=== PATIENT | female | born 1965 | race Caucasian/White ===

== ENCOUNTER 2017-11-12 08:59 | Emergency (ER) | payer MEDICAID, OTHER ==
[~2017-11-12] VITALS: Ht 157.5 cm; Wt 66.0 kg
[2017-11-12] MEDS ORDERED: LOSA25TA12 PO (09:04)
[2017-11-12] MEDS ORDERED: IBUPROFEN 600MG TABLET PO STA (09:22)
[2017-11-12] MEDS ORDERED: MECLIZINE 25MG TABLET PO ONE (09:30)
[2017-11-12 09:45] LABS: BASOPHILS % 0.3 % (0.0-2.0); EOSINOPHILS % 3.6 % (0.0-5.0); HEMATOCRIT. 43.2 % (36.0-48.0); HEMOGLOBIN. 14.5 g/dL (12.0-16.0); LYMPHOCYTES % 22.2 % (20.0-50.0); MEAN CORPUSCULAR HEMOGLOBIN 30.3 pg (28.0-32.0); MEAN CORPUSCULAR VOLUME 90.2 fL (81.0-99.0); MEAN PLATELET VOLUME 8.8 fl (7.4-10.4); MONOCYTES % 5.3 % (2.0-8.0); NEUTROPHILS % 68.6 % (40.0-76.0); PLATELET 250 x1000/uL (130-400); RED BLOOD CELL COUNT 4.78 mill/uL (4.2-5.4); RED CELL DISTRIBUTION WIDTH 12.9 % (11.6-14.6)
[2017-11-12 09:47] LABS: CHLORIDE 107 mEq/L (98-107)
[2017-11-12 09:49] LABS: PROTHROMBIN TIME 10.7 sec (9.4-11.6)
[2017-11-12] MEDS ORDERED: LOSARTAN POTASSIUM 100 MG TABLET PO ONE (10:00)
[2017-11-12 11:33] LABS: CLARITY URINE CLEAR (CLEAR); COLOR URINE YELLOW (YELLOW); KETONES URINE NEGATIVE (NEGATIVE); LEUKOCYTE ESTERASE URINE TRACE (NEGATIVE); NITRITE URINE NEGATIVE (NEGATIVE); OCCULT BLOOD URINE NEGATIVE (NEGATIVE); PH URINE 7.5 (4.5-8.0); PROTEIN URINE NEGATIVE (NEGATIVE); UROBILINOGEN URINE 0.2 E.U./dL (0.2-1.0)
[2017-11-12 12:50] VITALS: BP 166/95
== END 2017-11-12 13:09 | disposition home or self-care (01) ==
LOC: ER 09:26
DX: R51 Headache (principal); I10 Essential (primary) hypertension; E78.00 Pure hypercholesterolemia, unspecified; Z85.51 Personal history of malignant neoplasm of bladder; Z90.710 Acquired absence of both cervix and uterus
CPT/HCPCS: 36415; 80053; 81003; 81025; 85025; 85610; 93005; 99285; Z7610; J8597

== ENCOUNTER 2018-08-30 18:07 | Emergency (ER) | payer OTHER ==
[~2018-08-30] VITALS: Ht 160 cm; Wt 67.0 kg
[~2018-08-30 18:07] MED LIST: LOSA25TA12 PO
[2018-08-30 18:14] VITALS: BP 166/97
== END 2018-08-30 19:48 | disposition home or self-care (01) ==
LOC: ER 18:07
DX: H66.91 Otitis media, unspecified, right ear (principal); E78.00 Pure hypercholesterolemia, unspecified; I10 Essential (primary) hypertension; Z90.710 Acquired absence of both cervix and uterus; Z79.899 Other long term (current) drug therapy
CPT/HCPCS: 99283

== ENCOUNTER 2018-09-08 09:50 | Emergency (ER) | payer OTHER ==
[~2018-09-08] VITALS: Ht 165.1 cm; Wt 67.0 kg
[2018-09-08 09:56] VITALS: BP 165/99
== END 2018-09-08 12:16 | disposition home or self-care (01) ==
LOC: ER 11:35
DX: H66.91 Otitis media, unspecified, right ear (principal); E78.00 Pure hypercholesterolemia, unspecified; I10 Essential (primary) hypertension; Z90.710 Acquired absence of both cervix and uterus
CPT/HCPCS: 99282

== ENCOUNTER 2018-11-04 15:14 | Emergency (ER) | payer MEDICAID, OTHER ==
[~2018-11-04] VITALS: Ht 165.1 cm; Wt 66.0 kg
[2018-11-05 01:50] LABS: CHLORIDE 105 mEq/L (98-107)
[2018-11-05 01:51] LABS: HEMATOCRIT. 41.4 % (36.0-48.0); MEAN CORPUSCULAR HEMOGLOBIN 30.7 pg (28.0-32.0); MEAN CORPUSCULAR VOLUME 90.6 fL (81.0-99.0); MEAN PLATELET VOLUME 8.9 fl (7.4-10.4); PLATELET 249 x1000/uL (130-400); RED BLOOD CELL COUNT 4.57 mill/uL (4.2-5.4); RED CELL DISTRIBUTION WIDTH 12.8 % (11.6-14.6)
[2018-11-05 01:52] LABS: BASOPHILS % 0.1 % (0.0-2.0); EOSINOPHILS % 3.1 % (0.0-5.0); LYMPHOCYTES % 22.5 % (20.0-50.0); NEUTROPHILS % 67.3 % (40.0-76.0)
[2018-11-05] MEDS: SODIUM CHLORIDE 0.9% 1,000 ML IV ONE (03:00)
[2018-11-05] MEDS ORDERED: IOHEXOL-300 100 ML BOTTLE ONE (06:01)
[2018-11-05 10:02] VITALS: BP 140/96
== END 2018-11-05 10:07 | disposition home or self-care (01) ==
LOC: ER 15:14
DX: L03.213 Periorbital cellulitis (principal); I10 Essential (primary) hypertension; Z90.710 Acquired absence of both cervix and uterus; Z98.890 Other specified postprocedural states
CPT/HCPCS: 36415; 70481; 80053; 85025; 99284; J7030; Q9967